=== PATIENT | male | born 1990 | race Caucasian/White ===

== ENCOUNTER 2024-08-10 07:51 | Emergency (ER) | payer BC, SELFPAY ==
[2024-08-10 08:00] VITALS: BP 154/96; PULSE 98; RESP 20; TEMP 35.8; O2SAT 97; BMI 34.4
--- NOTE | 2024-08-10 08:03 | ED_ITS ---
HPI - General Adult General Date Seen: 08/10/24 Chief complaint: Back Injury/Pain Stated complaint: back pain Time Seen by Provider: 08/10/24 08:03 History of Present Illness HPI narrative: 33 yo M presenting to the ER today for a low back pain. He has no history of back surgeries or any long-term back problems. He does not have any previous records and a more field health system. Looks like he has had primary care through the [facility] system. However, no visit since 2018 in their computer record. His problem list from his [facility] medical record included tobacco use, anxiety, insomnia, depression, alcohol use disorder. He has not really gone for primary care or mental health care for several years. He is not currently on any prescription medications. He has a history of alcohol use disorder. He is drinking much less heavily than he used to but does still drink alcohol. He is not here for alcohol treatment. Patient has having a lot of pain affecting both sides of her lower lumbar spine. He 1st injured his back when he was lifting a heavy motorcycle several months ago. At that episode he had some pretty significant pain affecting his lower lumbar spine and radiating into both of his buttocks. It sounds like he was able to get that pain to heal up after seeing a chiropractor in treating with ibuprofen. He had been doing well for quite a long time. Last week his back pain started to flare up again. 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 Since last he has been having more significant pain, spasm, and stiffness in his low back. He has been trying to take ibuprofen. He took a dose day and a dose yesterday but has not been taking it consistently. He did not notice any improvement in the pain after the ibuprofen doses so he did not take it repeatedly. He size chiropractor. They did some massage and ?muscle scraping? on his low back. He now has a bruise on his right buttock that was caused by the chiropractor. He has no recent falls or other injuries. A couple of days ago the pain was severe and he had some numbness radiating to both of his thighs. That is actually better. He still has some numbness radiating to his legs but it is better today than it was a co uple of days ago. He has not had any weakness in either leg. He has had normal function of bowel and bladder. No anterior abdominal pain. No fever or chills. He does note that sometimes he gets sweaty at night and that is been ongoing for 6 months. Not worse lately. No weight loss. No swelling in his legs. 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 His activities at work are generally light duty. He tried to go to work today but could not because his back was too painful. He knew he needed to come to the ER. He wants try to get some medications to help his box feel ball or so that he can get back to work. Related Data Home Medications ?Medication ?Instructions ?Recorded ?Confirmed No Known Home Medications 08/10/24 08/10/24 Allergies Allergy/AdvReac Type Severity Reaction Status Date / Time No Known Drug Allergies Allergy Verified 08/10/24 08:04 Exam Narrative: Exam Narrative: Constitutional: Appears well-developed and well-nourished. Alert. Conversant. Non toxic. HENT: Head: Atraumatic. Nose: Nose normal. Mouth/Throat: Oral mucosa is clear and moist. no trismus. Pharynx normal. Tonsils symmetric. No tonsillar enlargement, erythema, or exudate. Eyes: Conjunctivae normal. EOM normal. Pupils equal, round, and reactive to light. No scleral icterus. Neck: Normal range of motion. Neck supple. No tracheal deviation present. Cardiovascular: Normal rate, regular rhythm. No gallop. No friction rub. No murmur heard. Symmetric radial artery pulses Pulmonary/Chest: Effort normal. No stridor. No respiratory distress. No wheezes. No rales. No rhonchi . No tenderness. Abdominal: Soft. Bowel sounds normal. No distension. No mass. No tenderness. No rebound. No guarding. Musculoskeletal: He does have a 6 x 8 cm area of yellow-green ecchymosis on the right buttock which she says was caused by the chiropractor doing ?muscle scraping?. No pelvic pain. No hip tenderness. Inspection of the lumbar spine is normal. No redness. No rash. No midline tenderness or step-off or the lumbar or sacral bones. He does have bilateral lumbar paraspinous muscle tenderness without any focal point tenderness. When he stands up he leans slightly forward because standing fully erect creases the pain in his back. He is able to stand himself up direct when I ask. No tenderness in the lateral hips, thighs, knees, lower legs, feet. RUE: Normal range of motion. No tenderness. No deformity LUE: Normal range of motion. No tenderness. No deformity RLE: Normal range of motion. No edema. No tenderness. No deformity LLE: Normal range of motion. No edema. No tenderness. No deformity Neurological: Alert and oriented to person, place, and time. Normal strength. CN II-VII intact. No sensory deficit. GCS eye subscore is 4. GCS verbal subscore is 5. GCS motor subscore is 6. Normal coordination Sensory: Normal light touch sensation bilaterally on the anteromedial thigh (L3), medial malleolus (L4), dorsal first web space (L5), lateral malleolus (S1 ). Strength: 5/5 strength hip flexors (L3) on the rig ht and left 5/5 strength in the quadriceps (L4) on t he right and left 5/5 strength in the tibialis anterior 5/5 strength in the EHL (L5) on the righ t and left 5/5 strength in the gastrocnemius (S1) o n the right and left 5/5 strength in the hamstring on the rig ht and left DTRs: symmetric in the patella (2/4) Negative straight leg raise bilaterally. Skin: Skin is warm and dry. No rash noted. No pallor. Normal capillary refill. Psychiatric: Normal mood. Normal affect. Polite. Does endorse alcohol use. He is not rating his alcohol use has a problem. We discussed open opiate addiction and the risk of creating a new substance use problem for given pain killers. He understands, but at this point he (we) believe that a short course of pain killers is reasonable. Const: Vital Signs, click to edit/add: Vital Signs - 24 hr 08/10/24 08:00 Temperature 96.5 F L Pulse Rate [Pulse Oximeter] 98 Respiratory Rate 20 Blood Pressure [Ri ght Upper Arm] 154/96 H Pulse Oximetry 97 Oxygen Delivery Me thod Room Air Course Vital Signs Vital signs: Initial Vital Signs Temperature 96.5 F L 08/10/24 08:00 Temperature Source Temporal Artery Scan 08/10/24 08:00 Pulse Rate 98 08/10/24 08:00 Respiratory Rate 20 08/10/24 08:00 Blood Pressure 154/96 H 08/10/24 08:00 Blood Pressure Mean 115 H 08/10/24 08:00 Blood Pressure Position Sitting 08/10/24 08:00 Pulse Oximetry 97 08/10/24 08:00 Oxygen Delivery Method Room Air 08/10/24 08:00 Vital Signs Temperature 96.5 F L 08/10/24 08:00 Pulse Rate 98 08/10/24 08:00 Respiratory Rate 20 08/10/24 08:00 Blood Pressure 154/96 H 08/10/24 08:00 Pulse Oximetry 97 08/10/24 08:00 Oxygen Delivery Method Room Air 08/10/24 08:00 Temperature 96.5 F L 08/10/24 08:00 Pulse Rate 98 08/10/24 08:00 Respiratory Rate 20 08/10/24 08:00 Blood Pressure 154/96 H 08/10/24 08:00 Pulse Oximetry 97 08/10/24 08:00 Oxygen Delivery Method Room Air 08/10/24 08:00 Medical Decision Making MDM Narrative Medical decision making narrative: This patient presented with back pain affecting both sides of his lower lumbar paraspinous region and radiating to his posterior buttocks. He has a history of low back pain with initial injury about 6 months ago that had healed up. Three exacerbated for about the past 5 or 6 days, since last . He has already been trying conservative management with chiropractor visit and limited use of NSAIDs, but is not healing. Broad differential considered. The patient did not sustain any trauma, the refore x-rays are not necessary due to the low likelihood of fracture or subluxation. He did report some numbness going down both legs a few days ago that is actually better today. There is no objective neurologic deficit in his legs today. Bowel and bladder function are normal. The patient has not had a fever, saddle/perineal anesthesia, bilateral foot numbness, or bowel or bladder dysfunction. There is no clinical evidence of cauda equina syndrome, discitis, spinal/epidural space hematoma or epidural abscess. The neurological exam is normal and the patient's symptoms seem consistent with a musculoskeletal issues and significant muscle spasm. Discussed possible MRI. At this point no definitive red flag symptoms to suggest CT and/or MRI is indicated. However it sounds like this patient has had limited access to medical care and has not really seen a primary care doctor in several years. With that thought in mind we considered going ahead getting the MRI today. However he thinks he will be able to follow-up with his full doctors at the [facility] clinic for recheck. Therefore, I think it is reasonable to hold off on MRI now with the plan for short-term follow-up in the [facility] clinic or return to the ER. Patient needs to drive himself home and therefore we cannot administer any sedating medications while the patient is physically here in the ER. The patient will be discharged with pain medications to use as directed. [facility] prescriptions for [place] 5/325 1-2 q.6 hours p.r.n.-12 tablets. Also [facility] for Flexeril 10 mg t.i.d. p.r.n.-15 tablets. Also Zofran in case he develops nausea from the other medications. Ice or heat to the back and stretching exercises. No heavy lifting, bending or twisting. Return if increasing pain, numbness, weakness, or bowel or bladder dysfunction. The patient was advised to schedule follow-up with their primary doctor within 2-3 days to re-assess symptoms. Return precautions reviewed and questions answered. Discharge Plan Discharge Clinical Impression: Low back pain Patient Disposition: Home, Self-Care Condition: Stable Instructions: Acute Low Back Pain (ED) Additional Instructions: As we discussed, please come back to the ER right away if you have worsening or severe pain worsening numbness in your legs, any weakness in your legs, abnormal function of your bladder or bowels, fevers, or any other worsening condition. Please follow-up with the clinic at [facility] as soon as possible for a recheck. You can call [phone] to schedule an appointment. If you are not completely improved, recheck with your doctor within 5-7 days. If you are not able to get into your doctor, come back to the ER for recheck. To treat your back pain you can take the following steps: 1. Avoid heavy lifting or activities that require bending at the waist, twisting, or lifting objects over your head. Do not lift anything that weighs more than 5 lb. 2. Some movement and light activities can be beneficial. 3. You can try treating the pain with ice packs or warm packs. 4. Use avoe-zym-jyzvtid medications-ibuprofen 600 mg every 6 hours as needed and acetaminophen 1000 mg every 6 hours as needed 5. Use the prescription muscle relaxer to help treat back stiffness and spasm. Use caution because this medication can cause dizziness, drowsiness, and sedation. 6. Use the prescription pain killer as needed. Use caution because all pain killers can cause dizziness, drowsiness, sedation, constipation, and can be addictive. Do not drive or operate machinery for 6 hours after taking pain killers or muscle relaxers. Prescriptions: No Action No Known Home Medications Follow Up/Referrals: Provider,Not a Local [Primary Care Provider] - Stand Alone Forms: [employer] Info Instructions
== END 2024-08-10 09:02 | disposition home or self-care (01) ==
LOC: ED 09:02
PROVIDERS: Emergency Provider Emergency Medicine
DX: M54.50 Low back pain, unspecified (principal)
CPT/HCPCS: 99282; 99283; 99284

== ENCOUNTER 2025-05-05 13:02 | Emergency (ER) | payer BC, SELFPAY ==
--- OUTSIDE RECORDS SUMMARY | 2025-05-05 13:08 | XMS_ITS | Clinical Summary ---
Author Organization [employer] [facility] Address [address] [place] [id number] Care Team Providers Care Ruling Technician Name Role Phone Adriel Holley MD Primary Care Provider Allergies Active Allergy Reactions Criticality Noted Date Comments Bupropion Other - Describe In Comment Field 08/15/2017 more depressed Medications overnight oximetryIndicat ions:Nocturnal hypoxemia For home use. On Room Air yes; On Oxygen no; On CPAP yes; On BiPAP no 1 Each 5 Active CPAPIndications :RAUL (obstructive sleep apnea) RESMED CPAP (E0601) machine for home use at pressure: 14 cmw, Choice of mask (A7030 or A7034) w/full face cushion (A7031) x1/mo, nasal cushion (A7032) x2/mo, or nasal pillows (A7033) x 2/mo; Length of Need: 99 months; Frequency of use: Daily 1 Each 11 5 Active pregabalin 75 mg capsuleIndicati ons:Restless leg syndrome Take 1 to 2 pills at night for RLS 60 Capsule 3 5 Active Active Problems Problem Noted Date Diagnosed Date Hypertriglyceridemia 08/22/2024 Anxiety 12/30/2017 Insomnia 12/30/2017 Moderate episode of recurrent major depressive d isorder 09/15/2017 Alcohol use disorder, moderate, in early remissi on 05/13/2017 Tobacco abuse 05/13/2017 Encounters Date Type Department Care Team Description 02/22/2025 2:00 PM CDT Office Visit [facility] [address] [place] [address] Fritz Rosa MD Sleep Follow-up 02/22/2025 Travel from Last 3 Months Immunizations Immunization Administration Dates Next Due Hepatitis B (Peds) 07/11/2005,03/21/2005 Meningococcal Vaccine (Menactra) 03/21/2005 Meningococcal Vaccine (Menomune) 03/21/2005 Tdap 02/13/2005 Varicella Vaccine 03/21/2005 Family History Medical History Relation Name Comments Asthma Father Relation Name Status Comments Father Mother Alive Social History Tobacco Use Types Packs/Day Years Used Date Smoking Tobacco: Every Day Cigarettes 1 12.3 Started: 01/08/2013 Smokeless Tobacco: Current Chew Tobacco Cessation:Ready to Q uit: Not Asked; Counseling Given: Not Answered Alcohol Use Standard Drinks/Week Comments No 8 (1 standard drink = 0.6 oz pur e alcohol) sober 92 days PHQ-2 Answer Date Recorded PHQ-2 Score 2 11/01/2018 Social Connections Answer Date Recorded Do you often feel lonely or isolated from those around you? 0 08/19/2024 Financial Resource Strain Answer Date R ecorded Difficulty of Paying Living Expenses 3 08/19/2024 Difficulty of Paying Living Expenses Not on file 08/19/2024 Food Insecurity Answer Date Recorded Do you worry your food will run out before you are able to buy more? 1 08/19/2024 Transportation Needs Answer Date Record ed Does lack of transportation keep you from medica l appointments? 1 08/19/2024 Does lack of transportation keep you from work, meetings or getting things that you need? 1 08/19/2024 Housing Stability Answer Date Recorded What is your housing situation today? 1 08/19/2024 Utilities Answer Date Recorded Do you have trouble paying f or utilities (for example, heat, electricity, water, phone)? 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 Not on file Not on file Not on file Obstetrics History Last Filed Vital Signs Vital Sign Reading Time Taken Comments Blood Pressure 124/80 02/22/2025 1:52 PM CDT Pulse 75 02/22/2025 1:52 PM CDT Temperature 37 C (98.6 F) 05/13/2017 8:11 AM CDT Respiratory Rate - - Oxygen Saturation 98% 02/22/2025 1:52 PM CDT Inhaled Oxygen Concentration - - Weight 110.8 kg (244 lb 3.2 oz) 02/22/2025 1:52 PM CDT Height 174.5 cm (5' 8.7) 02/22/2025 1:52 PM CDT Body Mass Index 36.38 02/22/2025 1:52 PM CDT Plan of Treatment Upcoming Encounters Date Type Department Care Team (Late st Contact Info) Description 06/08/2025 1:00 PM CDT Office Visit [facility] [address] [place] [address] Fritz Rosa MD [address] [place] [address] Health Maintenance Due Date Last Done Comments Hepatitis B series for 19+ ( 3 of 3 - 3-dose series) 09/05/2005 07/11/2005, 03/21/2005 Pneumococcal series for age 6-49 (1 of 2 - PCV) 2010 Tetanus booster 02/13/2015 02/13/2005 Depression screening for age 12+ 12/30/2018 12/30/2017, 09/17/2017, 08/15/2017, Additional history exists COVID-19 vaccine series (2023- season) 2025 Influenza Vaccine (#1) 2025 BMI (ht and wt on same day) for age 18+ 02/22/2026 02/22/2025, 08/15/2017, 05/13/2017, Additional history exists RSV vaccine for adults or (1 - 1-dose 75+ series) 2066 HIV for age 15-65 Completed 08/19/2024 Hepatitis C screening for ag e 18-79 Completed 08/19/2024 Procedures Procedure Name Priority Date/Time Associated Diagnosis Comments ANTI HIV 1/2 Routine 08/19/2024 10:32 AM COMPOSING ROOM SUPERVISOR Screening for HIV (human immunodeficiency virus) ANTI HCV Routine 08/19/2024 10:32 AM COMPOSING ROOM SUPERVISOR Need for hepatitis C screening test from Last 3 Months or Most Recently Relevant to Health Maintenance Results * ANTI HCV (08/19/2024 10:32 AM COMPOSING ROOM SUPERVISOR) HEPATITIS C ANTIBODY NON-REACTI VE NON-REACT DARNELL [facility] Comment: HCV antibody was non-reactive. There is no laboratory evidence of HCV infection. In most cases, no further action is required. However, if recent HCV exposure is suspected, a test for HCV RNA (test code 91679) is suggested. For additional information please refer to http://[employer]/faq/LGY16j6 (This link is being provided for informational/ educational purposes only.) Blood BLOOD SPECIMEN / Unknown 08/19/2024 10:32 AM COMPOSING ROOM SUPERVISOR 08/19/2024 10:33 AM COMPOSING ROOM SUPERVISOR Jonn Torres MD SEND OUTS Final Result Performing Organization Address City/State/[facility] Co de Phone Number [facility] [address] [place] [address], [facility] [address] [place] [address] * ANTI HIV 1/2 (08/19/2024 10:32 AM COMPOSING ROOM SUPERVISOR) HIV AG/AB, 4TH GEN NON-REACT DARNELL NON-REACT DARNELL [facility] Comment: HIV-1 antigen and HIV-1/HIV-2 antibodies were not detected. There is no laboratory evidence of HIV infection. PLEASE NOTE: This information has been disclosed to you from records whose confidentiality may be protected by state law. If your state requires such protection, then the state law prohibits you from making any further disclosure of the information without the specific written consent of the person to whom it pertains, or as otherwise permitted by law. A general authorization for the release of medical or other information is NOT sufficient for this purpose. For additional information please refer to http://[employer]/faq/PHC987 (This link is being provided for informational/ educational purposes only.) The performance of this assay has not been clinically validated in patients less than 2 years old. Blood BLOOD SPECIMEN / Unknown 08/19/2024 10:32 AM COMPOSING ROOM SUPERVISOR 08/19/2024 10:33 AM COMPOSING ROOM SUPERVISOR Jonn Torres MD SEND OUTS Final Result [facility] [address] [place] [address], [facility] [address] [place] [address] from Last 3 Months or Most Recently Relevant to Health Maintenance Insurance [id number] [place] [address] [facility] Care Teams Ruling Technician Relationship Specialty Start Date End Date Adriel Holley MD [address] [facility] [place] [address] PCP - General Family Practice 09/09/17
[2025-05-05 13:23] VITALS: BP 114/79; PULSE 78; RESP 16; TEMP 36.6; O2SAT 96; BMI 36.2
--- NOTE | 2025-05-05 14:00 | CRLHL7_ITS ---
For Patients: As a result of the Century Cures Act, medical imaging exams and procedure reports are released immediately into your electronic medical record. You may view this report before your referring provider. If you have questions, please contact your health care provider. Indication: Cough Technique: PA and lateral views of the chest. Comparison: None. Findings: Normal cardiomediastinal silhouette. No focal consolidation, pleural effusions, or visualized pneumothorax. Impression: No acute cardiopulmonary disease. Dictated by Bang Ronquillo MD @ 05/05/2025 2:15:51 PM (Electronically Signed)
--- NOTE | 2025-05-05 14:28 | ED_ITS ---
HPI - General Adult General Chief complaint: Cough Stated complaint: Cough, lightheaded Time Seen by Provider: 05/05/25 13:59 Source: patient Mode of arrival: ambulatory Limitations: no limitations History of Present Illness HPI narrative: 34-year-old male presenting today with cough that is been present on and off for about a year. However in the last couple of weeks coughing spasms have been getting worse and more frequent. Generally the cough is only present in the morning about present any time. He states that the cough is so aggressive the sometimes he feels like he is going to pass out, makes him feel short of breath and lightheaded. He denies fevers or chills. No changes in his appetite. Patient smokes a half pack cigarettes per day. No chest pain. Cough is nonproductive. States that he was given inhaler in the past but is out. Related Data Previous Rx's ?Medication ?Instructions ?Recorded albuterol sulfate 90 mcg/actuation 1 inh inhalation QI D PRN shortness 05/05/25 aerosol inhaler of breath or wheezing #8.5 g brendan prednisone 20 mg tablet 40 mg (2 x 20 mg) PO DAILY 5 days 05/05/25 #10 tabs Allergies Allergy/AdvReac Type Severity Reaction Status Date / Time No Known Drug Allergies Allergy Verified 08/10/24 08:04 Review of Systems Status of ROS: Reports: 10 or more systems reviewed and unremarkable except as noted in History and below Exam Narrative: Exam Narrative: Overweight, well-developed patient in no acute distress. Alert and oriented. Answers questions appropriately. Mood and affect are appropriate. Thoughts are goal oriented and rational. No tangential or magical thinking noted. Patient speaks in full sentences without needing to catch his breath. HEENT: Normocephalic atraumatic. Pupils are equally round reactive to light. Extraocular muscles are intact. Conjunctivae are moist without any icterus noted. Moist mucous membranes. Eyebrow piercing. Cardiovascular: Heart is regular rate and rhythm S1 and S2 are present without any murmurs. Lungs: Bilateral wheezing present. No increased work of breathing Skin: Well perfused without any obvious rashes. Const: Vital Signs, click to edit/add: Vital Signs - 24 hr 05/05/25 13:23 Temperature 97.8 F Pulse Rate [Pulse Oximeter] 78 Respiratory Rate 16 Blood Pressure [Ri ght Upper Arm] 114/79 Pulse Oximetry 96 Oxygen Delivery Me thod Room Air Course Course ED Course: Started the patient on a DuoNeb and oral prednisone. Chest x-ray, read by me, does not show any acute pathology. Normal CBC. Triple swab negative. Wheezing significantly improved after DuoNeb. Vital Signs Vital signs: Initial Vital Signs Temperature 97.8 F 05/05/25 13:23 Temperature Source Temporal Artery Scan 05/05/25 13:23 Pulse Rate 78 05/05/25 13:23 Respiratory Rate 16 05/05/25 13:23 Blood Pressure 114/79 05/05/25 13:23 Blood Pressure Mean 90 05/05/25 13:23 Blood Pressure Position Sitting 05/05/25 13:23 Pulse Oximetry 96 05/05/25 13:23 Oxygen Delivery Method Room Air 05/05/25 13:23 Vital Signs Temperature 97.8 F 05/05/25 13:23 Pulse Rate 78 05/05/25 13:23 Respiratory Rate 16 05/05/25 13:23 Blood Pressure 114/79 05/05/25 13:23 Pulse Oximetry 96 05/05/25 13:23 Oxygen Delivery Method Room Air 05/05/25 13:23 Temperature 97.8 F 05/05/25 13:23 Pulse Rate 78 05/05/25 13:23 Respiratory Rate 16 05/05/25 13:23 Blood Pressure 114/79 05/05/25 13:23 Pulse Oximetry 96 05/05/25 13:23 Oxygen Delivery Method Room Air 05/05/25 13:23 Medications Administered Medications: Discontinued Medications Generic Name Dose Route Start Last Admin Trade Name Osmani PRN Reason Stop Dose Admin Albuterol/Ipratropium 1 neb 05/05/25 15:00 05/05/25 15:09 Iprat-Albut 0.5-2.5 Mg/3 Ml Neb IH 05/05/25 15:01 1 neb ONCE ONE Administration Prednisone 50 mg 05/05/25 15:00 05/05/25 15:08 Prednisone 10 Mg Tablet PO 05/05/25 15:01 50 mg ONCE ONE Administration Medical Decision Making MDM Narrative Medical decision making narrative: 34-year-old male presenting with reactive airways. We discussed needs to quit smoking. Will send him home on a 5 day course of prednisone, albuterol inhaler prescribed. Recommend he follow up with primary care this next week to discuss his symptoms, check how he is doing and to discuss smoking cessation. Lab Data Lab results reviewed: Yes I reviewed the patient's lab results Labs: Lab Results 05/05/25 05/05/25 Range/Units 13:31 14:10 WBC 7.04 (4.50-11.00) K/uL RBC 4.77 (4.30-5.90) m/uL Hgb 14.4 (13.5-17.5) gm/dL Hct 42.7 (37.0-53.0) % MCV 90 (80-100) fL MCH 30 (26-34) pg MCHC 34 (32-36) gm/dL RDW Coeff of Lyric 12.3 (11.5-15.5) % Plt Count 220 (140-440) K/uL Neut % (Auto) 55.1 (42.0-72.0) % Lymph % (Auto) 30.8 (20-44) % [place] % (Auto) 9.9 (0.0-11.0) % Eos % (Auto) 3.8 (0.0-7.0) % Baso % (Auto) 0.3 (0.0-3.0) % Neut # (Auto) 3.87 (1.7-7.0) K/uL Lymph # (Auto) 2.17 (0.90-2.90) K/uL [place] # (Auto) 0.70 (0.00-0.90) K/UL Eos # (Auto) 0.27 (0.00-0.50) K/uL Baso # (Auto) 0.02 (0.00-0.30) K/uL Abs Immat Gran (auto) 0.01 (0.00-0.30) K/uL Imm/Tot Granulo (auto) 0.1 % SARS-CoV-2 (PCR) Cancelled Influenza Type A (PCR) Cancelled Influenza Type B (PCR) Cancelled Imaging Data Chest x-ray: Attestation: I have reviewed the pertinent imaging results. Radiologist's impression: Technique: PA and lateral views of the chest. Comparison: None. Findings: Normal cardiomediastinal silhouette. No focal consolidation, pleural effusions, or visualized pneumothorax. Impression: No acute cardiopulmonary disease. Discharge Plan Discharge Clinical Impression: Bilateral wheezing Patient Disposition: Home, Self-Care Condition: Stable Instructions: How to Use a Metered-Dose Inhaler (DC) Additional Instructions: Use inhaler as needed/as directed. Take all steroids as prescribed. You will need to follow-up with your primary care provider in the next 1-2 weeks to discuss your symptoms and to discuss smoking cessation. Return to the ER if you develop shortness of breath or worsening symptoms. Prescriptions: New albuterol sulfate 90 mcg/actuation HFA aerosol inhaler 1 inh inhalation QID PRN (Reason: shortness of breath or wheezing) Qty: 8.5 1RF prednisone 20 mg tablet 40 mg PO DAILY 5 Days Qty: 10 0RF Follow Up/Referrals: Provider,Not a Local [Primary Care Provider, Family Practice] Stand Alone Forms: [employer] Info Instructions
[2025-05-05 14:44] LABS: Hematocrit 42.7 % (37.0-53.0); Hemoglobin* 14.4 gm/dL (13.5-17.5); Immature Granulocytes Abs Auto 0.01 K/uL (0.00-0.30); Immature Granulocytes Pct Auto 0.1 %; Lymphocytes Absolute Auto 2.17 K/uL (0.90-2.90); Mean Corpuscular HGB Conc 34 gm/dL (32-36); Mean Corpuscular Hemoglobin 30 pg (26-34); Mean Corpuscular Volume 90 fL (80-100); RDW Coefficient of Variation % 12.3 % (11.5-15.5); Red Blood Count 4.77 m/uL (4.30-5.90); White Blood Count* 7.04 K/uL (4.50-11.00)
[2025-05-05 14:46] LABS: Slide Review Reflex No
[2025-05-05] MEDS: IPRAT-ALBUT 0.5-2.5 MG/3 ML NEB 1 NEB IH (15:09)
[2025-05-05 15:36] LABS: PCR FLU A Negative PCR FLU A (Negative); PCR FLU B Negative PCR FLU B (Negative); PCR RSV Negative PCR RSV (Negative); SARS PCR* Negative SARS-CoV-2 (Negative)
== END 2025-05-05 15:47 | disposition home or self-care (01) ==
PROVIDERS: Emergency Provider Family Medicine
DX: R06.2 Wheezing (principal); F17.210 Nicotine dependence, cigarettes, uncomplicated
CPT/HCPCS: 36415; 71046; 85025; 87631; 94640; 99284; J7512